=== PATIENT | female | born 2000 | race Caucasian/White ===

== ENCOUNTER 2019-04-10 11:00 | Outpatient (CLI) | payer OTHER, MEDICAID | END 2019-04-10 13:10 | disposition home or self-care (01) | LOC: OBT 11:00 → L-D 11:02 → OBT 13:10 | DX: O36.5930 Maternal care for other known or suspected poor fetal growth, third trimester, not applicable or unspecified (principal); Z3A.34 34 weeks gestation of pregnancy | CPT/HCPCS: 76815; 76818; 76820 ==